=== PATIENT | male | born 1970 | race African-American/Black ===

== ENCOUNTER 2019-10-22 16:53 | Emergency (ER) | payer OTHER, SELFPAY ==
[2019-10-22 16:58] VITALS: BP 146/87; PULSE 107; RESP 18; TEMP 36.6; O2SAT 100
--- NOTE | 2019-10-22 17:15 | ECG_ITS ---
Measurements Intervals Vega Rate: 84 P: 56 HI: 156 QRS: -10 QRSD: 92 T: 52 QT: 372 QTc: 441 Interpretive Statements SINUS RHYTHM NORMAL ECG Electronically Signed On 10-22-2019 17:49:01 [employer] DEPARTMENT OPERATOR by Alin Francis D.O.
--- NOTE | 2019-10-22 17:16 | ED.GENADULT ---
HPI - General Adult General Chief complaint: Recheck/Abnormal Lab/Rx Stated complaint: HTN Time Seen by Provider: 10/22/19 17:06 Source: patient Mode of arrival: ambulatory Limitations: no limitations History of Present Illness HPI narrative: Patient is a 49-year-old male who presents to emergency department for evaluation of left-sided headache for the last 3 days is a moderate aching pain also notes that his blood sugars have been running high has been checking them becoming anxious over this patient denies any recent illness fever chills nausea vomiting patient notes her sugars have been running around 190. Patient presents per private vehicle has tried [id number] medications for his headache with no improvement. Nothing is made the headache better or worse. Patient presents with normal gait and no distress Related Data Home Medications Medication Instructions Recorded Confirmed albuterol sulfate 09/04/19 beclomethasone dipropionate [Qvar INHALATION 09/04/19 RediHaler] benzonatate mg PO 09/04/19 benzonatate mg PO 09/04/19 cetirizine mg 09/04/19 famotidine 09/04/19 glipizide mg 09/04/19 insulin glargine [Basaglar KwikPen unit SUBCUT 09/04/19 U-100 Insulin] irbesartan mg 09/04/19 metformin mg 09/04/19 montelukast mg 09/04/19 pravastatin 09/04/19 promethazine-DM ml 09/04/19 Allergies Allergy/AdvReac Type Severity Reaction Status Date / Time lisinopril AdvReac Severe Swelling Verified 08/17/19 02:09 Review of Systems Review of Systems: All systems reviewed & are unremarkable except as noted in HPI and below PMFSH Past Medical History Medical History Asthma Diabetes Hypercholesterolemia Hypertension Social History Social History Smoking status: Never smoker Gender identity (if verbalized by the patient): Male Exam Narrative: Exam Narrative: GENERAL: Well-appearing, well-nourished, and in no acute distress. HEAD: Normocephalic, atraumatic. EYES: PERRLA and EOMI. ENT: Nares clear, no rhinorrhea or epistaxis. Mucous membranes moist. Oropharynx without tonsillar hypertrophy exudate or other lesions. Bilateral TMs pearly vital nonbulging NECK: Supple. No adenopathy or masses. CHEST: Clear to auscultation. No respiratory distress. No wheezes rales or rhonchi HEART: Regular rate and rhythm. No murmur heard. Normal peripheral pulses. ABDOMEN: Soft, nontender, nondistended EXTREMITIES: Normal range of motion. No edema. SKIN: Warm, dry, no rash. NEURO: No focal deficits. Alert and oriented x3. Cranial nerves II through XII grossly intact PSYCH: Normal mood and affect. Course Course Emergency Course: Patient in the room in no distress Vital Signs Vital signs: Vital Signs Temperature 97.9 F 10/22/19 16:58 Pulse Rate 107 H 10/22/19 16:58 Respiratory Rate 18 10/22/19 16:58 Blood Pressure 146/87 H 10/22/19 16:58 Pulse Oximetry 100 10/22/19 16:58 Temperature 97.9 F 10/22/19 16:58 Pulse Rate 107 H 10/22/19 16:58 Respiratory Rate 18 10/22/19 16:58 Blood Pressure 146/87 H 10/22/19 16:58 Pulse Oximetry 100 10/22/19 16:58 Medical Decision Making MDM Narrative Medical decision making narrative: Patient in the room in no distress resting comfortably labs to follow with primary care afebrile nontoxic-appearing Vital Signs Vital Signs: Vital Signs Temperature 97.9 F 10/22/19 16:58 Pulse Rate 107 H 10/22/19 16:58 Respiratory Rate 18 10/22/19 16:58 Blood Pressure 146/87 H 10/22/19 16:58 Pulse Oximetry 100 10/22/19 16:58 Temperature 97.9 F 10/22/19 16:58 Pulse Rate 107 H 10/22/19 16:58 Respiratory Rate 18 10/22/19 16:58 Blood Pressure 146/87 H 10/22/19 16:58 Pulse Oximetry 100 10/22/19 16:58 Lab Data Result diagrams: 10/22/19 17:24 10/22/19 17:53 Labs: Lab Results
[2019-10-22 17:33] LABS: Basophils Percent Auto 0.7 % (0.2-1.2); Eosinophils Absolute Auto 0.1 K/mm3 (0-0.3); Eosinophils Percent Auto 2.4 % (0-4.4); Hematocrit 42.1 % (42.0-52.0); Hemoglobin 14.5 g/dL (14.0-18.0); Immature Granulocyte Absolute 0.02 K/mm3 (0.00-0.031); Immature Granulocyte Percent A 0.5 % (0-0.5); Lymphocytes Absolute Auto 1.46 K/mm3 (0.9-3.2); Lymphocytes Percent Auto 34.9 % (18.3-44.2); Mean Corpuscular HGB Conc 34.4 g/dl (32-36); Mean Corpuscular Hemoglobin 31.2 pg (26-34); Mean Corpuscular Volume 90.5 fl (80-100); Mean Platelet Volume 10.2 fl (7.4-10.4); Monocytes Absolute Auto 0.4 K/mm3 (0.1-0.6); Monocytes Percent Auto 9.3 % (2.6-8.5); Neutrophils Absolute Auto 2.2 K/mm3 (1.3-6.7); Neutrophils Percent Auto 52.2 % (45.5-73.1); Platelet Count Result 186 k/mm3 (150-375); Red Blood Count 4.65 M/mm3 (4.6-6.20); Red Cell Distribution Width 13.2 % (11.5-14.5); White Blood Count 4.2 K/mm3 (4.5-10.0)
[2019-10-22] MEDS: KETOROLAC 30 MG/ML VIAL (*BKC) IV PUSH (17:34)
[2019-10-22] MEDS: SODIUM CHLORIDE 0.9% IV 1,000 ML 999 ML IV CONT (17:34)
[2019-10-22 18:00] VITALS: BP 141/93; PULSE 76; RESP 16; O2SAT 99
[2019-10-22 18:01] LABS: Troponin I < 0.012 ng/mL (0.000-0.034)
[2019-10-22 18:10] LABS: Blood Urea Nitrogen 15 mg/dL (9-20); Calcium 8.3 mg/dL (8.4-10.2); Carbon Dioxide 26 mmol/L (22-30); Chloride 105 mmol/L (98-107); Estimated Glomerular Filt Rate > 60; Glucose 211 mg/dL (75-110); Potassium 3.9 mmol/L (3.4-5.0); Sodium 136 mmol/L (137-145)
[2019-10-22 18:45] VITALS: BP 133/81; PULSE 72; RESP 16; O2SAT 99
== END 2019-10-22 18:52 | disposition home or self-care (01) ==
PROVIDERS: Emergency Medicine Emergency Medical Services; Emergency Provider Emergency Medicine
DX: I10 Essential (primary) hypertension (principal); J45.909 Unspecified asthma, uncomplicated; E11.9 Type 2 diabetes mellitus without complications; Z79.4 Long term (current) use of insulin; E78.00 Pure hypercholesterolemia, unspecified
CPT/HCPCS: 36415; 80048; 84484; 85025; 93005; 96361; 96374; 99284; J1885; J7030

== ENCOUNTER 2020-02-29 16:09 | Emergency (ER) | payer OTHER, SELFPAY ==
[2020-02-29 16:20] VITALS: BP 149/92; PULSE 129; RESP 20; TEMP 38.7; O2SAT 100
--- NOTE | 2020-02-29 16:26 | ED.GENADULT ---
HPI - General Adult General Chief complaint: Upper Respiratory Infection Stated complaint: Sinus Infection Time Seen by Provider: 02/29/20 16:27 Source: patient and RN notes reviewed Mode of arrival: ambulatory Limitations: no limitations History of Present Illness HPI narrative: This is a 49 years old male presents to the office for an evaluation of possible sinus infection. Symptoms began on Thursday with stuffy nose, sneezing and cough. He tried [id number] cold medicine with no relief. Denies sick contact. He is a construction trades contractor. Related Data Home Medications Medication Instructions Recorded Confirmed albuterol sulfate 2.5 mg CONTINUOUS NEBULIZATION 09/04/19 02/29/20 Q4-6H PRN beclomethasone dipropionate [Qvar 2 inh INHALATION DAILY 09/04/19 02/29/20 RediHaler] famotidine 20 mg DAILY 09/04/19 02/29/20 glipizide 5 mg DAILY 09/04/19 02/29/20 insulin glargine [Luisaglwillow Holden See Rx Instructions .ROUTE .COMPLEX 09/04/19 02/29/20 U-100 Insulin] irbesartan 75 mg DAILY 09/04/19 02/29/20 metformin 500 mg DAILY 09/04/19 02/29/20 montelukast 10 mg DAILY 09/04/19 02/29/20 pravastatin 20 mg DAILY 09/04/19 02/29/20 albuterol sulfate 2 inh INHALATION Q4-6H PRN 02/29/20 02/29/20 Allergies Allergy/AdvReac Type Severity Reaction Status Date / Time lisinopril Allergy Severe Swelling Verified 02/29/20 16:36 Review of Systems Review of Systems: Narrative: CONSTITUTIONAL: Denies fever. Reports cold hands EYES: Denies visual changes ENT: Reports rhinorrhea, congestion/headache, sore throat, otalgia. CARDIOVASCULAR: Denies chest pain, palpitation RESPIRATORY: Denies dyspnea, wheezing. Reports dry cough GASTROINTESTINAL: Denies abdominal pain, nausea, vomiting SKIN: Denies rash MUSCULOSKELETAL: Denies acute back pain NEUROLOGIC: Denies lightheaded All other systems reviewed are negative, except as documented in HPI. PMFSH Past Medical History Medical History Asthma Diabetes Hypercholesterolemia Hypertension Social History Social History Smoking status: Never smoker Gender identity (if verbalized by the patient): Male Comments At time of signature, I agree with nursing past medical, surgical, social and family history. There is no relevant family history pertinent to the presenting complaint. Exam Narrative: Exam Narrative: GENERAL: This is a well-nourished, well-developed patient, in no apparent distress. EYES: PERRL. Sclera clear/white. Vision is grossly intact. EARS: External ears normal, auditory canals clear and without drainage, TMs normal without perforation. Hearing grossly intact. NOSE: External nose normal with no obvious nasal discharge, nares without redness, no rhinorrhea. THROAT: Mucous membranes moist, posterior pharynx clear. NECK: Neck supple, non-tender without lymphadenopathy, masses or thyromegaly. CARDIOVASCULAR: Regular rate and rhythm without murmurs, gallops, or rubs. RESPIRATORY: Clear to auscultation. Breath sounds equal bilaterally. No wheezes, rales, or rhonchi. GASTROINTESTINAL: Abdomen soft, non-tender, nondistended. Bowel sounds are active. No hepato-splenomegaly, or palpable masses. No guarding. SKIN: warm, intact with no suspicious lesions or rash, good texture and turgor. NEURO: awake, alert, and oriented to person, place and time. There were no obvious focal neurologic abnormalities. Steady gait Agustin Coma Scale Eye Opening: Spontaneous 4 Agustin Coma Scale Motor: Obeys Commands 6 Elizabeth Coma Scale Verbal: Oriented 5 Course Vital Signs Vital signs: Vital Signs Temperature 101.7 F H 02/29/20 16:20 Pulse Rate 129 H 02/29/20 16:20 Respiratory Rate 20 02/29/20 16:20 Blood Pressure 149/92 H 02/29/20 16:20 Pulse Oximetry 100 02/29/20 16:20 Temperature 101.4 F H 02/29/20 17:15 Pulse Rate 124 H 02/29/20 17:15 Respiratory Rate 20
[2020-02-29 16:47] VITALS: TEMP 38.7
[2020-02-29] MEDS: ACETAMINOPHEN 500 MG TABLET 1000 MG PO (16:47)
[2020-02-29 17:15] VITALS: PULSE 124; RESP 20; TEMP 38.6; O2SAT 98
== END 2020-02-29 17:15 | disposition home or self-care (01) ==
PROVIDERS: Emergency Provider Nurse Practitioner
DX: J06.9 Acute upper respiratory infection, unspecified (principal); R05 Cough; Z20.828 Contact with and (suspected) exposure to other viral communicable diseases; J45.909 Unspecified asthma, uncomplicated; E11.9 Type 2 diabetes mellitus without complications; E78.00 Pure hypercholesterolemia, unspecified; I10 Essential (primary) hypertension
CPT/HCPCS: 99213; A9270; G0463

== ENCOUNTER 2021-08-04 05:55 | Emergency (ER) | payer OTHER, SELFPAY ==
[2021-08-04 05:57] VITALS: BP 154/98; PULSE 86; RESP 18; TEMP 37.1; O2SAT 100
--- NOTE | 2021-08-04 06:25 | ED.GENADULT ---
HPI - General Adult General Chief complaint: Upper Respiratory Infection Stated complaint: sore throat Time Seen by Provider: 08/04/21 06:23 History of Present Illness HPI narrative: Patient 51-year-old gentleman who presents the emergency department with chief complaint of sore throat and nasal drainage. The patient reports for the last 2 weeks he has had yellowish drainage and reports that he has had a sore throat. The patient states the pain is worse with swallowing and improved with rest patient states has been trying Coricidin and has been trying Chloraseptic without relief. Related Data Home Medications Medication Instructions Recorded Confirmed albuterol sulfate 2.5 mg CONTINUOUS NEBULIZATION 09/04/19 02/29/20 Q4-6H PRN beclomethasone dipropionate [Qvar 2 inh INHALATION DAILY 09/04/19 02/29/20 RediHaler] famotidine 20 mg DAILY 09/04/19 02/29/20 glipizide 5 mg DAILY 09/04/19 02/29/20 insulin glargine [Cralos Holden See Rx Instructions .ROUTE .COMPLEX 09/04/19 02/29/20 U-100 Insulin] irbesartan 75 mg DAILY 09/04/19 02/29/20 metformin 500 mg DAILY 09/04/19 02/29/20 montelukast 10 mg DAILY 09/04/19 02/29/20 pravastatin 20 mg DAILY 09/04/19 02/29/20 albuterol sulfate 2 inh INHALATION Q4-6H PRN 02/29/20 02/29/20 Allergies Allergy/AdvReac Type Severity Reaction Status Date / Time lisinopril Allergy Severe Swelling Verified 08/04/21 06:02 Review of Systems Review of Systems: A 10 system review of systems was completed on the patient and is negative except for what is stated in the HPI. Nursing and ancillary documentation was reviewed. [facility] Past Medical History Medical History (Updated 08/04/21 @ 06:30 by Jimy Gleason MD) Asthma Diabetes Hypercholesterolemia Hypertension Social History Social History Smoking status: Never smoker Gender identity (if verbalized by the patient): Male Exam Narrative: GENERAL: Well-appearing, well-nourished, and in no acute distress. HEAD: Normocephalic, atraumatic. EYES: PERRLA and EOMI. ENT: Nares clear, no rhinorrhea or epistaxis. Mucous membranes moist. NECK: Supple. CHEST: Clear to auscultation. No respiratory distress. HEART: Regular rate and rhythm. No murmur heard. Normal peripheral pulses. ABDOMEN: Soft, nontender, nondistended, normal active bowel sounds. EXTREMITIES: Normal range of motion. No edema. SKIN: Warm, dry, no rash. NEURO: No focal deficits. Alert and oriented x3. PSYCH: Normal mood and affect. Course Vital Signs Vital signs: Vital Signs Temperature 37.1 C 08/04/21 05:57 Pulse Rate 86 08/04/21 05:57 Respiratory Rate 18 08/04/21 05:57 Blood Pressure 154/98 H 08/04/21 05:57 Pulse Oximetry 100 08/04/21 05:57 Temperature 37.1 C 08/04/21 05:57 Pulse Rate 86 08/04/21 05:57 Respiratory Rate 18 08/04/21 05:57 Blood Pressure 154/98 H 08/04/21 05:57 Pulse Oximetry 100 08/04/21 05:57 Medical Decision Making Vital Signs Vital Signs: Vital Signs Temperature 37.1 C 08/04/21 05:57 Pulse Rate 86 08/04/21 05:57 Respiratory Rate 18 08/04/21 05:57 Blood Pressure 154/98 H 08/04/21 05:57 Pulse Oximetry 100 08/04/21 05:57 Temperature 37.1 C 08/04/21 05:57 Pulse Rate 86 08/04/21 05:57 Respiratory Rate 18 08/04/21 05:57 Blood Pressure 154/98 H 08/04/21 05:57 Pulse Oximetry 100 08/04/21 05:57 Lab Data Labs: Influenza A Screen Negative Reference Range: Negative Influenza B Screen Negative Reference Range: Negative Strep Screen Presumptive Negative *(Reference Range: Negative)* Discharge Plan Discharge Clinical Impression: Pharyngitis Sinusitis Qualifiers: Sinusitis location: maxillary Chronicity: acute Recur
[2021-08-04] MEDS: predniSONE 20 MG TABLET 60 MG PO (06:29)
[2021-08-04] MEDS: AMOXICILLIN/CLAVULANATE K 875-125 MG TAB 1 TABLET PO (06:29)
[2021-08-05 14:20] LABS: SARS-CoV-2 RNA PCR Negative
== END 2021-08-04 06:42 | disposition home or self-care (01) ==
LOC: ANHED 06:30
PROVIDERS: Emergency Provider Emergency Medicine
DX: J02.9 Acute pharyngitis, unspecified (principal); J01.00 Acute maxillary sinusitis, unspecified; Z20.822 Contact with and (suspected) exposure to COVID-19; E11.9 Type 2 diabetes mellitus without complications; J45.909 Unspecified asthma, uncomplicated; E78.00 Pure hypercholesterolemia, unspecified; I10 Essential (primary) hypertension; Z79.84 Long term (current) use of oral hypoglycemic drugs; Z79.4 Long term (current) use of insulin
CPT/HCPCS: 87081; 87804; 87880; 99283; A9270; C9803; J7512; U0003; U0005

== ENCOUNTER 2023-02-06 18:52 | Emergency (ER) | payer OTHER, SELFPAY ==
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
[2023-02-06 19:12] VITALS: BP 160/88; PULSE 102; RESP 18; TEMP 36.4; O2SAT 100
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
[2023-02-06] MEDS: ORPHENADRINE CITRATE 100 MG TABLET.ER PO (20:29)
== END 2023-02-06 20:47 | disposition home or self-care (01) ==
PROVIDERS: Emergency Provider Physician Assistant
DX: S19.9XXA Unspecified injury of neck, initial encounter (principal); I10 Essential (primary) hypertension; E11.9 Type 2 diabetes mellitus without complications; J45.909 Unspecified asthma, uncomplicated; E78.00 Pure hypercholesterolemia, unspecified; Z79.84 Long term (current) use of oral hypoglycemic drugs; Z79.4 Long term (current) use of insulin; R91.1 Solitary pulmonary nodule; V68.5XXA Driver of heavy transport vehicle injured in noncollision transport accident in traffic accident, initial encounter
CPT/HCPCS: 70450; 72125; 99284; A9270; L0140

== ENCOUNTER 2023-11-28 15:24 | Emergency (ER) | payer OTHER, MEDICAID, SELFPAY ==
--- NOTE | ~2023-11-28 | XR_ITS ---
EXAMINATION: XR chest 1V portable Exam Date/Time: 11/28/2023 15:40 CDT HISTORY: cough, chest tightness Comparison: None. RESULT: Lines, tubes, and devices: None. Lungs and pleura: Low volumes crowding, otherwise clear. Cardiomediastinal silhouette: Stable. Other: No acute osseous or upper abdominal finding. IMPRESSION: No acute cardiopulmonary process. Reviewed, dictated and finalized at location K.
[2023-11-28 15:26] VITALS: BP 152/88; PULSE 115; RESP 18; TEMP 36.9; O2SAT 100
--- NOTE | 2023-11-28 15:51 | PC.NURSE ---
Pt states he doubled the solution in his breathing treatment, administered 2 breathing treatments within an hour prior to arrival to . Christian SNOWDEN informed.
[2023-11-28 15:52] VITALS: O2SAT 98
--- NOTE | 2023-11-28 16:00 | ED.GENADULT ---
HPI - General Adult General Chief complaint: Upper Respiratory Infection Stated complaint: cough, sinus pressure Time Seen by Provider: 11/28/23 15:29 Source: patient Mode of arrival: ambulatory Limitations: no limitations History of Present Illness HPI narrative: This is a 53-year-old male who presents to the ED with chief complaint of URI symptoms for the past 2 days. Reports it started out with general fatigue and cough. Reports that he has also had a lot of sinus congestion pressure. Reports some runny nose as well as postnasal drainage. He feels that his chest is very tight is painful when he coughs. He has history of asthma and has been doing regular breathing treatments at home. Patient actually states that he doubled the dose of his breathing treatment and this twice prior to arrival. He does feel that it helps to loosen things up and to help him cough. Endorses subjective fevers. Denies chest pain or rest, exertional chest pain or shortness of breath. Related Data Home Medications Medication Instructions Recorded Confirmed albuterol sulfate 2.5 mg/3 mL 2.5 mg continuous nebulization 09/04/19 02/29/20 (0.083 %) solution for nebulization Q4-6H PRN Shortness Of Breath beclomethasone dipropionate 80 2 inh inhalation DAILY 09/04/19 02/29/20 mcg/actuation HFA breath activated aerosol (Qvar RediHaler) famotidine 20 mg tablet 20 mg DAILY 09/04/19 02/29/20 glipizide 5 mg tablet 5 mg DAILY 09/04/19 02/29/20 insulin glargine 100 unit/mL (3 See Rx Instructions .Route .COMPLEX 09/04/19 02/29/20 mL) subcutaneous pen (Basaglar KwikPen U-100 Insulin) irbesartan 75 mg tablet 75 mg DAILY 09/04/19 02/29/20 metformin 500 mg tablet 500 mg DAILY 09/04/19 02/29/20 montelukast 10 mg tablet 10 mg DAILY 09/04/19 02/29/20 pravastatin 20 mg tablet 20 mg DAILY 09/04/19 02/29/20 albuterol sulfate 90 mcg/actuation 2 inh inhalation Q4-6H PRN 02/29/20 02/29/20 aerosol inhaler Shortness Of Breath Allergies Allergy/AdvReac Type Severity Reaction Status Date / Time lisinopril Allergy Severe Swelling Verified 02/06/23 18:53 Review of Systems Review of Systems: All systems as dictated in [facility] Past Medical History Medical History (Updated 11/28/23 @ 16:42 by Christian Galloway PA-C) Asthma Diabetes Hypercholesterolemia Hypertension Social History Social History Smoking status: Never smoker Gender identity (if verbalized by the patient): Male Exam Narrative: GENERAL: Well-appearing, well-nourished, and in no acute distress. HEAD: Normocephalic, atraumatic. EYES: PERRLA and EOMI. ENT: Nares clear, no rhinorrhea or epistaxis. Mucous membranes moist. Oropharynx without tonsillar hypertrophy exudate or other lesions. NECK: Supple. No adenopathy or masses. CHEST: No respiratory distress. Clear to auscultation. No wheezes rales or rhonchi. 98% room air. HEART: Regular rate and rhythm. No murmur heard. Normal peripheral pulses. ABDOMEN: Soft, nontender, nondistended, normal active bowel sounds. MSK: Normal range of motion. No edema. SKIN: Warm, dry, no rash. NEURO: Alert and oriented x3. No focal deficits. PSYCH: Normal mood and affect. Course Vital Signs Vital signs: Vital Signs Temperature 98.5 F 11/28/23 15:26 Pulse Rate 115 H 11/28/23 15:26 Respiratory Rate 18 11/28/23 15:26 Blood Pressure 152/88 H 11/28/23 15:26 Pulse Oximetry 100 11/28/23 15:26 Temperature 98.5 F 11/28/23 16:26 Pulse Rate 118 H 11/28/23 16:26 Respiratory Rate 18 11/28/23 16:26 Blood Pressure 166/90 H 11/28/23 16:26 Pulse Oximetry 100 11/28/23 16:26 Oxygen Delivery Room Air 11/28/23 15:52 Medical Decision Making [facility] Narrative Medical decision making narrative: This is a 53-year-old male who presents to the ED with chief complaint of cough, congestion and fatigue. Vitals show initial tachycardia and hypertension. He
[2023-11-28 16:26] VITALS: BP 166/90; PULSE 118; RESP 18; TEMP 36.9; O2SAT 100
[2023-11-28 16:27] LABS: Influenza A QL RT-PCR Negative (Negative); Influenza B QL RT-PCR Positive (Negative); RSV RNA, RT-PCR Negative (Negative); SARS-CoV-2 RNA PCR Negative (Negative)
== END 2023-11-28 17:04 | disposition home or self-care (01) ==
PROVIDERS: Emergency Provider Physician Assistant
DX: J10.1 Influenza due to other identified influenza virus with other respiratory manifestations (principal); Z20.822 Contact with and (suspected) exposure to COVID-19; J45.909 Unspecified asthma, uncomplicated; E11.9 Type 2 diabetes mellitus without complications; E78.00 Pure hypercholesterolemia, unspecified; I10 Essential (primary) hypertension; Z79.84 Long term (current) use of oral hypoglycemic drugs; Z79.4 Long term (current) use of insulin
CPT/HCPCS: 71045; 87637; 99283